=== PATIENT | female | born 1980 | race Caucasian/White ===

== ENCOUNTER 2021-03-12 09:40 | Emergency (ER) | payer BC, MEDICAID ==
[~2021-03-12] VITALS: Ht 162.6 cm; Wt 81.8 kg
[~2021-03-12 09:40] MED LIST: AMOX-580 PO; CYCL-1 PO; IBUP-1984 PO; NAPR500T6 PO; PSEU-225 PO
[2021-03-12 10:17] VITALS: BP 162/83
[2021-03-12] MEDS ORDERED: PRED20TA PO (11:51)
== END 2021-03-12 11:55 | disposition home or self-care (01) ==
LOC: ER 09:41
DX: J20.9 Acute bronchitis, unspecified (principal); J45.901 Unspecified asthma with (acute) exacerbation; R19.7 Diarrhea, unspecified; R09.81 Nasal congestion; R07.89 Other chest pain; R05.9 Cough, unspecified; Z72.89 Other problems related to lifestyle; Z79.2 Long term (current) use of antibiotics; Z79.899 Other long term (current) drug therapy
CPT/HCPCS: 71045; 99283